=== PATIENT | male | born 1995 | race Caucasian/White ===

== ENCOUNTER → 2019-02-11 13:17 | Outpatient (CLI) | payer OTHER, SELFPAY ==
--- NOTE | 2019-02-11 13:34 | XR_ITS ---
XR chest 2V HISTORY: ITS.REASON: COUGH ORDERING PHYSICIAN: Meli Hinson MD PATIENT AGE: 23 years COMPARISON: None available FINDINGS: The cardiomediastinal silhouette and pulmonary vascularity are within normal limits. The lungs are clear without infiltrates, suspicious nodules, or pleural effusions. No acute bony abnormalities. IMPRESSION: Negative chest, no acute finding
== END ==
PROVIDERS: Visit Provider Family Medicine
DX: R05 Cough (principal)
CPT/HCPCS: 71046